=== PATIENT | female | born 1940 | race Caucasian/White ===

== ENCOUNTER 2016-06-18 07:08 | Inpatient (IN) ==
[2016-06-18] MEDS ORDERED: ZOFRAN ONE (08:08)
[2016-06-18] MEDS ORDERED: ZOFRAN IV ONE (08:17)
[2016-06-18] MEDS ORDERED: SODIUM CHLORIDE 0.9% INJ ONE ×3 (08:34→10:01)
[2016-06-18] MEDS ORDERED: PHENERGAN IV ONE ×2 (08:34→10:01)
[2016-06-18] MEDS ORDERED: NS 1,000 ML IV ONE (08:34)
[2016-06-18] MEDS ORDERED: PROTONIX IV ONE (08:35)
--- NOTE | 2016-06-18 08:52 | PROVIDER DOCUMENTATION ---
HPI-Abdominal Pain/GI Problem - General Chief Complaint: Abdominal Pain Stated Complaint: ABD PAIN,VOMITING Time Seen by Provider: 06/18/16 07:41 Allergies/Adverse Reactions: Patient Allergies Allergy/AdvReac Type Severity Reaction Status Date / Time codeine Allergy Unknown Verified 06/18/16 08:50 erythromycin base Allergy Unknown Verified 06/18/16 08:50 Home Medications: Home Medication List Medication Instructions Recorded Confirmed Last Taken Type Aripiprazole [Abilify] 10 mg PO DAILY 06/18/16 06/18/16 06/17/16 08:00 History Clonazepam [Klonopin] 2 mg PO TID PRN 06/18/16 06/18/16 Unknown History Clopidogrel Bisulfate [Plavix] 75 mg PO DAILY 06/18/16 06/18/16 06/17/16 20:00 History Hydrocodone/APAP 7.5 mg/325 mg 7.5 mg PO TID 06/18/16 06/18/16 06/17/16 21:00 History [[place]-7.5] Hydroxychloroquine [Plaquenil] 200 mg PO DAILY 06/18/16 06/18/16 06/17/16 20:00 History Metoprolol Succinate E.r. [Toprol 25 mg PO DAILY 06/18/16 06/18/16 06/17/16 08: 00 History Xl] Omeprazole [Prilosec] 20 mg PO DAILY 06/18/16 06/18/16 06/17/16 08:00 History Primidone 100 mg PO HS 06/18/16 06/18/16 06/17/16 20:00 History Quetiapine Fumarate [Seroquel] 100 mg PO HS 06/18/16 06/18/16 06/17/16 20:00 History Quinapril [Accupril] 20 mg PO DAILY 06/18/16 06/18/16 06/17/16 20:00 History Sertraline HCl [Zoloft] 100 mg PO DAILY 06/18/16 06/18/16 06/17/16 08:00 History Tapentadol HCl [Nucynta] 100 mg PO BID 06/18/16 06/18/16 06/17/16 20:00 History Tizanidine HCl [Zanaflex] 4 mg PO TID 06/18/16 06/18/16 06/17/16 20:00 History - History of Present Illness-ABD Nature of Presenting Problems: Pt with abd pain with n/v since last pm. Has been having some constipation problems but no diarrhea. No fevers. Diffuse pain only. No c/o's. Abdominal Pain Onset Location: reports: other (diffusely, started in epigastric area) Quality of Pain: reports: aching, cramping Severity in ED: reports: moderate Onset/Duration: reports: last night Timing: reports: still present Associated Symptoms: reports: constipation, nausea, vomiting. denies: chest pain, cough, diaphoresis, diarrhea, fever/chills, genitourinary problems, headaches, heartburn, swelling/mass in abdomen Last BM: this morning Dark Stools Present?: reports: none noticed Rectal Bleeding: reports: none Rectal Pain: reports: none Emesis Description: denies: red blood, coffee grounds Review of Systems - Adult - REVIEW OF SYSTEMS - ADULT Constitutional: denies: chills, fever Eyes: reports: no symptoms reported Ears, Nose, Mouth & Throat: reports: no symptoms reported Cardiovascular: denies: chest pain, palpitations Respiratory: denies: cough, shortness of breath Gastrointestinal: reports: abdominal pain, constipation, nausea, vomiting. denies: diarrhea Genitourinary: denies: dysuria, frequency, hematuria Musculoskeletal: reports: no symptoms reported Integumentary: reports: no symptoms reported Neurological: reports: no symptoms reported Psychiatric: reports: no symptoms reported Endocrine: reports: no symptoms reported Hematologic/Lymphatic: reports: no symptoms reported Allergic/Immunologic: reports: no symptoms reported All Other Systems: Reviewed and Negative Past History - Adult - PAST MEDICAL HISTORY-ADULT Review of Records: reports: Nursing Assessment Review, Medications Reviewed Cardiovascular: reports: HTN Gastrointestinal: reports: diverticulosis, GERD Musculoskeletal: reports: fibromyalgia Neurological: reports: TIA Psychiatric: reports: bipolar, depression - PRIOR SURGERIES/PROCEDURES Surgical/Procedure History: reports: appendectomy, cholecystectomy, hysterectomy , orthopedic (extremity) - SOCIAL HISTORY Smoking: non-smoker Physical Exam-General - PHYSICAL EXAM-ADULT Initial Vital Signs Reviewed: Yes - CONSTITUTIONAL General Appearance: appears well, alert, no apparent distress - EYES Eyes: PERRL/EOMI, pink conjunctivae - HEAD, EARS, NOSE, MOUTH & THROAT HENMT: normocephalic/atraumatic, moist mucous membranes - NECK Neck: non-tender, full range of motion, supple - RESPIRATORY Respiratory: chest non-tender, lungs clear, normal breath sounds - CARDIOVASCULAR Cardiovascular: normal peripheral pulses, regular rate, rhythm, no edema - GASTROINTESTINAL (ABDOMEN) Abdominal Exam: normal bowel sounds, soft, no organomegaly, no pulsatile mass, tenderness. negative: distended, guarding, rigid, rebound, mass, McBurney's point tenderness, Kee's sign - LYMPHATIC Lymphatic: no adenopathy. negative: enlargement - MUSCULOSKELETAL Back Exam: normal inspection, no CVA tenderness, no vertebral tenderness Extremity: normal range of motion, non-tender, normal inspection, no pedal edema - SKIN Integumentary: normal color, normal turgor, warm/dry - NEUROLOGIC Neurologic: grossly normal - PSYCHIATRIC Psych/Mental Status: normal mood/affect Progress - PLAN OF CARE/RESULTS Progress/Plan/Lab Results: Vital Signs - 8 hr 06/18/16 07:15 Temperature 97.6 F Pulse Rate 68 Respiratory Rate 18 Blood Pressure 170/87 O2 Sat by Pulse Oximetry 100 Orders Category Date Time Status AMYLASE [CHEM] Stat Lab 06/18/16 08:34 Uncollected CBC WITH ELECTRONIC DIFF [HEME] Stat Lab 06/18/16 08:34 Uncollected COMPREHENSIVE METABOLIC PANEL [CHEM] Stat Lab 06/18/16 08:34 Uncollected LIPASE [CHEM] Stat Lab 06/18/16 08:34 Uncollected 0.9% Sodium Chloride Inj [Ns] 1,000 ml Med 06/18/16 08:34 Active IV 999 mls/hr Ondansetron [Zofran] Med 06/18/16 08:08 Discontinued 4 mg .ROUTE .STK-MED ONE Ondansetron [Zofran] Med 06/18/16 08:17 Discontinued 4 mg IV NOW ONE Pantoprazole [Protonix] Med 06/18/16 08:35 Discontinued 40 mg IV NOW ONE Promethazine [Phenergan] Med 06/18/16 08:34 Discontinued 12.5 mg IV NOW ONE Sodium Chloride 0.9% Med 06/18/16 08:34 Discontinued 10 ml INJ NOW ONE Sodium Chloride 0.9% Med 06/18/16 08:35 Discontinued 10 ml INJ NOW ONE Result Diagrams: 06/18/16 08:03 06/18/16 08:03 - REASSESSMENT Reassessment #1 Time Reassessed: 09:50 Status: unchanged (after zofran and 12.5mg phenergan--will give additional dose phenergan) Reassessment #2 Time Reassessed: 11:15 Status: worsening Reassessment Comment: increased pain - XRAY 1 XRAY Study: Abdomen Impression: Abnormal XRAY Interpretation: gas pattern suggestive of volvulus - CT/MRI 1 CT Study: Abdomen, Pelvis Impression: Abnormal, Discussed w/Radiology CT Results: Cecal volvulus - CONSULTS/PCP/HOSPITALIST Notification #1 *Consult/PCP/Hospitalist*: Figh Time Discussed: 13:41 Consult Disposition: Will see in ED, Admit Departure - Departure Time of Disposition Decision: 13:45 DIAGNOSIS: Cecal volvulus Disposition: ADMITTED INPATIENT 09 Certified Medical Emergency: Emergent Condition: Stable Referrals and Follow-Ups: Nicolás Taylor MD [Primary Care Provider] -
[2016-06-18 09:03] LABS: MANUAL DIFF NEEDED? NO
[2016-06-18 09:06] LABS: BASO% 0.2 % (0.0-0.8); EOS# 0.05 X1000 (0.0-0.7); EOS% 0.5 % (0.0-10.0); HEMATOCRIT 36.9 % (37.0-47.0); HEMOGLOBIN 12.2 g/dL (12.0-16.0); IMM GRAN# 0.03 X1000 (0.0-0.04); IMM GRAN% 0.3 % (0.0-0.5); LYMPH# 1.36 X1000 (1.2-3.4); LYMPH% 14.2 % (20.5-51.1); MCH 30.8 PG (27-31); MCHC 33.1 g/dL (33-37); MCV 93.2 FL (81-99); MONO# 0.54 X1000 (0.11-0.59); MONO% 5.7 % (1.7-9.3); MPV 10.2 FL (7.4-10.4); NEUT% 79.1 % (42.2-75.2); PLT 195 X1000 (130-400); RBC 3.96 XMIL (4.2-5.4)
[2016-06-18 09:45] LABS: AGAP 12; ALKALINE PHOSPHATASE 80 U/L (32-104); AMYLASE 101 U/L (20-200); BUN 17 mg/dL (8-22); CALCIUM 9.4 mg/dL (8.8-10.2); CHLORIDE 99 mmol/L (98-107); COSMO 282; GOT 24 U/L (10-30); GPT 11 U/L (10-36); LIPASE 47 U/L (13-60); POTASSIUM 4.1 mmol/L (3.5-5.1); SODIUM 139 mmol/L (136-145); TCO2 28 mmol/L (25-35); TOTAL BILIRUBIN 0.21 mg/dL (0.20-1.00); TOTAL PROTEIN 6.8 g/dL (6.3-8.3)
--- NOTE | 2016-06-18 10:43 | Diag Imaging Result Document ---
PROCEDURE NAME: FLAT/UPRIGHT ABD/1 VIEW CHEST - 06/18/2016 ABDOMINAL SERIES: No comparison exam. FINDINGS: There is gaseous distention of the sigmoid colon. This is nonspecific but can be seen with sigmoid volvulus. There is a small amount of gas visible elsewhere in nondistended colon. There is no abnormal gaseous small-bowel distention identified. There is no free air identified. Upright chest shows within normal limits heart size. There is mild tortuosity of the thoracic aorta. The lungs appear clear. There is no pleural effusion or pneumothorax identified. IMPRESSION: 1. Gaseous distention of sigmoid colon. This is nonspecific but can be seen with sigmoid volvulus. Correlation with clinical evaluation is recommended. 2. No abnormal gaseous small-bowel distention. No evidence of acute cardiopulmonary disease.
[2016-06-18] MEDS ORDERED: DILAUDID IV ONE ×2 (11:30→13:45)
--- NOTE | 2016-06-18 13:57 | Diag Imaging Result Document ---
PROCEDURE NAME: CT ABD/PELVIS W/ IV CONT ONLY - 06/18/2016 CT OF THE ABDOMEN AND PELVIS WITH CONTRAST: FINDINGS: Exam performed with oral and intravenous contrast. A dose reduction protocol was use. No comparison CT scan is available. There are calcified granulomas from old granulomatous disease at the lung bases. There are no substantial abnormalities of the liver, spleen, adrenal glands, or pancreas identified. The gallbladder is surgically absent. There is a small left renal cyst. There is slight cortical thinning or scarring at the left kidney. The bilateral kidneys otherwise enhance homogeneously. There is no hydronephrosis. There are no substantially enlarged lymph nodes identified. The cecum is substantially distended and medially displaced. There is a twist in the right lower quadrant mesentery, and a beaked appearance to the distal cecum. These findings are compatible with cecal volvulus. There is no substantial bowel wall thickening identified. There is no abscess identified. There is no free air. There is no evidence of small bowel obstruction. There is mild uncomplicated colonic diverticulosis. IMPRESSION: 1. Findings which are compatible with cecal volvulus. 2. No free air. Verbal results provided to Dr. Perez at 1:39 p.m. on 06/18/2016. MTDD
[2016-06-18] MEDS ORDERED: LR 1,000 ML IV ONE (15:13)
--- NOTE | 2016-06-18 15:44 | CONSULTATION ---
DATE OF CONSULTATION: 06/18/2016 REQUESTING PHYSICIAN: Dr. Perez in emergency department. CONSULT CONCERNING: Cecal volvulus. HISTORY OF PRESENT ILLNESS: A 75-year-old female presenting with abdominal pain and nausea, vomiting starting last night. She had previous constipation issues but never had pain to this degree. Came into the emergency department, was evaluated, found to have a cecal volvulus. I was asked to evaluate the patient. She does report abdominal pain and fullness and bloating and some nausea again. Most of the tenderness in the right lower quadrant but she does have some diffuse tenderness that is described as moderate, cramping and aching in intensity and has never been to this degree before. PAST MEDICAL HISTORY: Includes history of hypertension, gastroesophageal reflux disease, diverticulosis, fibromyalgia, TIA, bipolar disease and depression. PAST SURGICAL HISTORY: Includes appendectomy, cholecystectomy, hysterectomy, unspecified orthopedic extremity surgery. HOME MEDICATIONS: Include Abilify, Klonopin, Plavix, [place], Plaquenil, metoprolol, Prilosec, Primidone, Seroquel, Accupril, Zoloft and Zanaflex. ALLERGIES: Include codeine and erythromycin. SOCIAL HISTORY: Denies alcohol, tobacco or illicit drugs. FAMILY HISTORY: Reviewed with patient but noncontributory. REVIEW OF SYSTEMS: A full 10 point review of systems obtained, negative as specified in HPI. PHYSICAL EXAMINATION: Vital Signs: Patient is currently afebrile. Her vital signs have been stable. General: No acute distress but appears uncomfortable. female, looks stated age. HEENT: Normocephalic, atraumatic. Pupils equal, round, reactive to light. Mucous membranes moist. Oropharynx benign. Neck: Supple. Trachea midline. Cardiovascular: Regular rate and rhythm. Lungs: Grossly clear. Abdomen: Distended but soft. Tympanic to percussion. Multiple previous surgical scars noted. She is tender to palpation diffusely. Some mild peritoneal signs. No gross peritonitis. Extremities: Moves all extremities. Neurologic: Grossly intact. Skin: No signs of jaundice. Vascular: All extremities perfused. LABORATORY: White blood cell count is 9, hematocrit 36, platelet count 195,000. Remainder of labs reviewed and grossly within normal limits. CT scan independently reviewed and radiology report reviewed. CT scan does show a cecal volvulus. ASSESSMENT AND PLAN: A 75-year-old female with multiple medical comorbidities and a cecal volvulus. 1. Multiple medical comorbidities. At this time she is being admitted by the hospitalist for management of her multiple medical comorbidities. This does increase her risk of perioperative mortality. Discussed that with the patient. Discussed her potential for prolonged intubation after the surgery. All questions were answered. 2. Cecal volvulus. At this time, the patient does need surgical intervention. The best intervention would be a right hemicolectomy. Discussed in detail this procedure with the patient. Discussed risks, benefits, alternatives. Discussed with patient that her risk of bleeding is elevated given her fact she is on Plavix. She voices understanding and wants to proceed with the procedure. The family was in the room and also agreed. Discussed with patient about potentially being in the ICU afterwards. All questions were answered. We will schedule and type and cross the patient. cc: Kemal Barajas MD
[2016-06-18] MEDS ORDERED: MEFOXIN 2 GM/NS 2 GM/50 ML IVPB IV ONE (16:00)
[2016-06-18] MEDS ORDERED: ALBUMIN 25% ONE (16:08)
[2016-06-18] MEDS ORDERED: MEFOXIN 2 GM/NS 2 GM/50 ML IVPB ONE (16:13)
[2016-06-18 17:11] LABS: URINE MICRO REVIEW NEEDED? NO; URINE SOURCE CATH
[2016-06-18 17:17] LABS: BILIRUBIN URINE NEGATIVE (NEGATIVE); BLOOD URINE NEGATIVE (NEGATIVE); COLOR YELLOW; GLUCOSE URINE NEGATIVE (NEGATIVE); LEUKOCYTES URINE NEGATIVE (NEGATIVE); NITRITE URINE NEGATIVE (NEGATIVE); PH URINE 7.5; PROTEIN URINE NEGATIVE (NEGATIVE); SP GRAVITY URINE 1.021; TURBIDITY URINE CLEAR (CLEAR); UROBILINOGEN URINE NORMAL (NORMAL)
[2016-06-18 17:18] LABS: UR EPITHELIAL CELLS <10 /HPF (<10); URINE BACTERIA NEGATIVE /HPF; URINE RBC <10 /HPF (<10); URINE WBC <10 /HPF (<10)
--- NOTE | 2016-06-18 18:07 | HISTORY AND PHYSICAL ---
PRIMARY CARE PROVIDER: Dr. Taylor. CHIEF COMPLAINT: Abdominal pain with vomiting. HISTORY OF PRESENT ILLNESS: Ms. Shirley Lemus is a 75-year-old female with a history of lupus for 20 years, TIA, fibromyalgia, bipolar, and hypertension who apparently started having some abdominal pain last night and some mixed constipation and diarrhea spells. She vomited about 10 times prior to admission and had some associated chills but no other symptoms. She states she did try to take Pepto-Bismol, but she threw it right back up. Our workup revealed that she had an abdominal CT that showed a cecal volvulus. Dr. Fermin has been consulted, and she has gone for emergency surgery at this time. PAST MEDICAL HISTORY: Hypertension, bipolar, depression, diverticulosis, GERD, fibromyalgia, TIA since 20 years ago. PAST SURGICAL HISTORY: Appendectomy, cholecystectomy, hysterectomy. She has had right shoulder surgery, left knee scope with repair, bunionectomy on the left, bladder tack x2. 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 Right carpal tunnel surgery. SOCIAL HISTORY: Denies tobacco, alcohol or illicit drug use. FAMILY HISTORY: Brother had kidney and lung cancer. REVIEW OF SYSTEMS: Fourteen-point review of systems were complete and all were negative except for those mentioned above in HPI. ALLERGIES: Codeine, erythromycin. HOME MEDICATIONS: Abilify 10 mg p.o. daily. Klonopin 2 mg p.o. 3 times a day as needed. Plavix 75 mg p.o. daily. [place] 7.5 p.o. t.i.d. Plaquenil 200 mg p.o. daily. Metoprolol extended release 25 mg p.o. daily. Omeprazole 20 mg p.o. daily. Primidone 100 mg p.o. nightly. Seroquel 100 mg p.o. nightly. Quinapril 20 mg p.o. daily. Sertraline HCL 100 mg p.o. daily. Tapentadol HCl 100 mg p.o. twice daily. Zanaflex 4 mg p.o. 3 times a day. LABORATORY DATA: White blood cells 9000, hemoglobin 12, hematocrit 36, platelet count 195,000. Sodium 139, potassium 4.1, BUN 17, creatinine 0.8, glucose 151, calcium 9.9, total bilirubin 0.21. AST 24, ALT of 11, amylase 101, lipase 47. Urinalysis negative. IMAGING: Abdominal pelvic CT showed cecal volvulus but no free air. Abdominal x-ray showed gaseous distention of the sigmoid colon which tends to be seen with a sigmoid volvulus. PHYSICAL EXAMINATION: VITAL SIGNS: Temperature 98.3 degrees, heart rate 85, respiratory rate 15, blood pressure 152/57, O2 saturation 74% on room air. Height 5 feet 1 inch tall, 186 pounds, BMI 35.1. GENERAL: Ms. Shirley Lemus is a 75-year-old female. She is in no acute distress. Able to answer all questions appropriately. She actually states that her pain is in her left lower quadrant, although where he is going to do surgery will be right lower quadrant. HEENT: Atraumatic, normocephalic. Pupils equal, round, reactive to light. Extraocular movements are intact. NECK: No JVD or carotid bruits noted. CARDIOVASCULAR: S1, S2. Regular rate and rhythm. No rubs, gallops, murmurs. PULMONARY: Clear to auscultation. Bilateral breath sounds. No excessive muscle use of work of breathing noted. GI: Tender in left lower quadrant. Positive hypoactive bowel sounds x4. EXTREMITIES: No edema noted with +2 dorsalis and radial pulses. NEUROLOGIC: Alert and oriented x4. Moves all extremities. ASSESSMENT AND PLAN: 1. Intractable nausea, vomiting, abdominal pain now with cecal volvulus and has gone for emergency surgery with Dr. Kemal Barajas. Will likely receive IV fluid hydration and has been started on IV antibiotics. 2. Hypertension. We will re-evaluate the need for medications post surgery. 3. Bipolar. Again depending on how the surgery goes will re-evaluate medications. 4. Fibromyalgia. Pain medication will likely have to be via IV. 5. Lupus, currently stable. 6. Deep venous thrombosis prophylaxis. SCDs. 7. Gastrointestinal prophylaxis. Will likely start on a proton pump inhibitor. Dictated by AISHWARYA Teresa for Renard Huffman MD cc: AISHWARYA Teresa MD Matthew L. Figh, MD Gregory S. Cheatham, MD
[2016-06-18] MEDS ORDERED: DILAUDID ONE (18:33)
[2016-06-18] MEDS ORDERED: KETAMINE (DOSE) ONE (18:34)
[2016-06-18] MEDS ORDERED: MORPHINE PCA ONE (18:43)
[2016-06-18] MEDS ORDERED: LR 1,000 ML ONE (18:44)
[2016-06-18] MEDS ORDERED: MORPHINE PCA IV PRN (18:55)
[2016-06-18] MEDS ORDERED: MORPHINE IV PRN (18:58)
[2016-06-18] MEDS ORDERED: ZOFRAN IV PRN (18:58)
[2016-06-18] MEDS ORDERED: LR 1,000 ML IV SCH (19:00)
--- NOTE | 2016-06-18 19:59 | OPERATIVE NOTE ---
PROCEDURE DATE: 06/18/2016 PREOPERATIVE DIAGNOSIS: Cecal volvulus. POSTOPERATIVE DIAGNOSIS: Cecal volvulus, likely secondary to adhesions. PROCEDURE: 1. Exploratory laparotomy. 2. Right hemicolectomy with hand-sewn 2-layer ileocolonic anastomosis. SURGEON: Kemal Barajas MD. VISITOR SERVICES ASSOCIATE: None. ANESTHESIA: General tracheal. INTRAOPERATIVE FINDINGS: As above. ESTIMATED BLOOD LOSS: 200 mL. SPECIMENS REMOVED: Right colon. BRIEF HISTORY: The patient is a 75-year-old female presenting with a 12-hour history of abdominal pain. She was found in the ER to have a cecal volvulus. Given this, we elected to take the patient to the operative theatre. We discussed with the patient the risks, benefits, alternatives. All questions were answered. DETAILS OF OPERATION: After informed consent was obtained, patient brought to the operative theatre, transferred to the operating table and placed supine position. General endotracheal anesthesia was then performed without complication. A formal time-out was then performed, confirming patient, date, procedure. All were in agreement. At that time, attention was given to the abdomen. After the abdomen was prepped and draped after a standard time-out, we made a standard midline incision. Upon entry of that, we saw a large cecal volvulus. It appeared to be viable, but significantly torsed. We elected to do a right hemicolectomy. She did have adhesions from previous surgeries which we took down sharply without any issue. We made a small window in the terminal ileum about 5 cm in vivo from the ileocecal valve, transected the bowel there. Also made a window in the transverse colon lateral to the middle colic. Made a window there. Transected the colon. At that point, we then used the LigaSure and electrocautery to take down the white line of [place] and to mobilize the mesentery of the cecum and ascending colon around to the hepatic flexure, removed the colon in its entirety, maintaining hemostasis with electrocautery and LigaSure. The patient was on Plavix and did have some oozing. There were a couple of areas that we had to suture ligate in addition. Once we were able to do this, we fashioned a hand-sewn 2-layer [id number] functional end-to-end anastomosis. We elected to do this given the change in discrepancy and caliber between the 2 lumens. We did this with 3-0 silk and 3-0 Vicryl with good results. The lumen appeared patent. We closed the mesenteric defect. We irrigated out the abdomen copiously. Lay the anastomosis gently into the abdomen and covered with omentum. Closed the abdomen in layers using 0 chromic for the peritoneum and running looped PDS from either side for the fascia. We placed jack through the skin. The patient tolerated procedure well and had a sterile dressing applied. Postoperatively, we will monitor the patient closely and await return of bowel function. cc: MD Renard Byrd MD
[2016-06-18] MEDS: PERIDEX MT SCH (20:53)
[2016-06-18] MEDS: PROTONIX IV SCH (20:53)
[2016-06-18] MEDS: ZOFRAN IV PRN (20:53)
[2016-06-18] MEDS: ZOSYN 3.375 GM/NS 3.375 GM/50 ML IVPB IV SCH (21:01)
[2016-06-18] MEDS: NS 1,000 ML IV SCH (21:02)
[2016-06-18] MEDS ORDERED: NS 500 ML IV ONE (21:27)
[2016-06-18] MEDS ORDERED: MEFOXIN 2 GM/NS 2 GM/50 ML IVPB IV SCH (22:00)
[2016-06-18 22:16] LABS: MANUAL DIFF NEEDED? NO
[2016-06-18 22:46] LABS: BASO% 0.2 % (0.0-0.8); EOS# 0.05 X1000 (0.0-0.7); EOS% 0.5 % (0.0-10.0); HEMOGLOBIN 9.2 g/dL (12.0-16.0); IMM GRAN# 0.02 X1000 (0.0-0.04); IMM GRAN% 0.2 % (0.0-0.5); LYMPH% 24.2 % (20.5-51.1); MCHC 32.9 g/dL (33-37); MCV 94.3 FL (81-99); MONO# 0.66 X1000 (0.11-0.59); MONO% 6.4 % (1.7-9.3); MPV 9.6 FL (7.4-10.4); NEUT% 68.5 % (42.2-75.2); PLT 207 X1000 (130-400); RBC 2.97 XMIL (4.2-5.4)
[2016-06-19] MEDS: ZOSYN 3.375 GM/NS 3.375 GM/50 ML IVPB IV SCH ×4 (04:51→22:43)
[2016-06-19] MEDS: NS 1,000 ML IV SCH ×5 (04:54→21:32)
[2016-06-19 05:44] LABS: MANUAL DIFF NEEDED? NO
--- NOTE | 2016-06-19 05:51 | PROGRESS NOTE ---
DATE: 06/19/2016 SUBJECTIVE: The patient is doing well. Some appropriate pain; otherwise, she is doing okay. She had some episodes of hypotension, but responded to fluid resuscitation. OBJECTIVE: Vital Signs: Patient is currently afebrile. Temperature 97.2 degrees, pulse is regular at 97, blood pressure 109/49. O2 saturation 99% on 3 L nasal cannula. General Examination: No acute distress. Resting comfortably in bed. Cardiovascular: Regular rate and rhythm. Lungs: Grossly clear. Abdomen: Soft, appropriately tender and nondistended. Incision with dressing in place. LABORATORY: Hematocrit from last night 28. Current labs pending. ASSESSMENT AND PLAN: A 75-year-old female, status post right hemicolectomy for cecal volvulus. 1. Multiple medical comorbidities, at this time being managed by the hospitalist service. We will defer those issues to the hospitalist service. 2. Postoperative state. At this time will keep her on her current diet. We will wait return of bowel function. We will also keep her Black catheter in place to monitor her urine output and overall assess the patient's status. Will keep her on antibiotics for total 24 hours after the operation. cc: MD Renard Byrd MD
[2016-06-19 05:58] LABS: BASO% 0.4 % (0.0-0.8); EOS# 0.17 X1000 (0.0-0.7); EOS% 2.1 % (0.0-10.0); HEMATOCRIT 27.2 % (37.0-47.0); HEMOGLOBIN 8.6 g/dL (12.0-16.0); IMM GRAN# 0.02 X1000 (0.0-0.04); IMM GRAN% 0.2 % (0.0-0.5); LYMPH# 1.78 X1000 (1.2-3.4); LYMPH% 22.1 % (20.5-51.1); MCH 30.4 PG (27-31); MCHC 31.6 g/dL (33-37); MCV 96.1 FL (81-99); MONO# 0.61 X1000 (0.11-0.59); MONO% 7.6 % (1.7-9.3); MPV 9.7 FL (7.4-10.4); NEUT% 67.6 % (42.2-75.2); PLT 200 X1000 (130-400); RBC 2.83 XMIL (4.2-5.4)
[2016-06-19 06:18] LABS: AGAP 9; BUN 13 mg/dL (8-22); CALCIUM 7.6 mg/dL (8.8-10.2); CHLORIDE 104 mmol/L (98-107); COSMO 277; POTASSIUM 3.8 mmol/L (3.5-5.1); SODIUM 138 mmol/L (136-145); TCO2 25 mmol/L (25-35)
[2016-06-19] MEDS ORDERED: OFIRMEV 1000 MG/ISOTONIC SOLN 1,000 MG/100 ML BOTTLE ONE (08:54)
[2016-06-19] MEDS ORDERED: XYLOCAINE-MPF 2% ONE (08:54)
[2016-06-19] MEDS ORDERED: TORADOL ONE (08:54)
[2016-06-19] MEDS ORDERED: QUELICIN (DOSE) ONE (08:54)
[2016-06-19] MEDS ORDERED: ROBINUL ONE (08:54)
[2016-06-19] MEDS ORDERED: APRESOLINE ONE (08:54)
[2016-06-19] MEDS ORDERED: ZOFRAN ONE (08:54)
[2016-06-19] MEDS ORDERED: NEOSTIGMINE ONE (08:54)
[2016-06-19] MEDS ORDERED: LR 1,000 ML ONE (08:55)
[2016-06-19] MEDS ORDERED: ZEMURON ONE (08:55)
[2016-06-19] MEDS ORDERED: DECADRON ONE (08:55)
[2016-06-19] MEDS: PERIDEX MT SCH ×2 (09:41→21:32)
[2016-06-19] MEDS: HEPARIN SUBQ SCH ×2 (09:41→16:57)
--- NOTE | 2016-06-19 15:42 | PROGRESS NOTE ---
DATE: 06/19/2016 SUBJECTIVE: The patient reports mild pain around the surgical area. She denies any nausea or vomiting. OBJECTIVE: Vital Signs: Temperature 97.9 degrees, heart rate 98, respiratory rate 20, blood pressure 104/79. O2 saturation 99% on 2 L nasal cannula. General Examination: This is a 75-year- old female lying in bed, in no acute distress. HEENT: Head is normocephalic, atraumatic. Anicteric sclerae and pale conjunctivae. Mucous membranes moist. Neck: Supple. No jugular venous distention noted. No carotid bruits. No carotid bruits. No lymphadenopathy. No thyromegaly. Cardiovascular Examination: S1, S2 heard. No murmurs, gallops, or rubs. Regular rate and rhythm. Respiratory: Clear bilaterally to auscultation. No work of breathing or using accessory muscles. Abdomen: Soft, mildly tender to palpation around the surgical area that is covered by dressing. No signs of peritoneal irritation. Bowel sounds present. No organomegaly. Extremities: No clubbing, cyanosis, or edema. Peripheral pulses present in both legs. Neurological: Patient is alert and oriented x3. Moves 4 extremities. LABORATORY DATA: White cell count 8.04, hemoglobin 8.6, hematocrit 27.2, platelets 200,000. B- type natriuretic peptide unremarkable. ASSESSMENT AND PLAN: 1. Cecal volvulus. 2. Status post right hemicolectomy. 3. Hypertension. 4. Bipolar disorder. 5. Fibromyalgia. PLAN: 1. The patient was admitted to the hospital for intractable nausea, vomiting, and CT of the abdomen and pelvis shows cecal volvulus. Dr. Barajas, from General Surgery, was consulted and he took this patient to operating room where he perform a right hemicolectomy. At this time, this patient is stable. She has been seen by her surgeon in the morning and she is doing fine. At this point, we are going to continue following the lead from general surgery. 2. Hypertension. Blood pressure is under control. We have held all blood pressure medications. 3. Bipolar disorder. Patient is on home medications. 4. Fibromyalgia. Aware. 5. Six systemic lupus erythematosus. Aware. Overall this patient is doing good. We are going to discharge this patient when okay with surgery. cc: Renard Huffman MD
[2016-06-19] MEDS: SODIUM CHLORIDE 0.9% INJ SCH (21:32)
[2016-06-19] MEDS: PROTONIX IV SCH (21:32)
[2016-06-20] MEDS: HEPARIN SUBQ SCH (00:35)
[2016-06-20] MEDS ORDERED: TYLENOL PO ONE (02:07)
[2016-06-20] MEDS: NS 1,000 ML IV SCH ×4 (02:19→21:21)
[2016-06-20 03:31] LABS: BASO% 0.2 % (0.0-0.8); EOS# 0.17 X1000 (0.0-0.7); HEMATOCRIT 22.2 % (37.0-47.0); HEMOGLOBIN 6.9 g/dL (12.0-16.0); IMM GRAN# 0.03 X1000 (0.0-0.04); IMM GRAN% 0.4 % (0.0-0.5); LYMPH% 15.2 % (20.5-51.1); MANUAL DIFF NEEDED? NO; MCH 30.7 PG (27-31); MCHC 31.1 g/dL (33-37); MCV 98.7 FL (81-99); MONO# 0.76 X1000 (0.11-0.59); MONO% 8.9 % (1.7-9.3); MPV 9.2 FL (7.4-10.4); NEUT% 73.3 % (42.2-75.2); PLT 172 X1000 (130-400); RBC 2.25 XMIL (4.2-5.4)
[2016-06-20] MEDS ORDERED: LOPRESSOR IV ONE (03:31)
[2016-06-20] MEDS ORDERED: NS 500 ML IV ONE (03:32)
[2016-06-20] MEDS: ZOSYN 3.375 GM/NS 3.375 GM/50 ML IVPB IV SCH ×5 (03:41→22:06)
[2016-06-20 03:44] LABS: AGAP 9; BUN 9 mg/dL (8-22); CALCIUM 7.4 mg/dL (8.8-10.2); CHLORIDE 104 mmol/L (98-107); COSMO 275; POTASSIUM 3.9 mmol/L (3.5-5.1); SODIUM 138 mmol/L (136-145); TCO2 25 mmol/L (25-35)
[2016-06-20] MEDS: ZOFRAN IV PRN (05:50)
--- NOTE | 2016-06-20 07:42 | PROGRESS NOTE ---
DATE: 06/20/2016 SUBJECTIVE: Patient doing well. She did look pale and had a hematocrit checked early this morning which was at 22, and she has been started on blood. OBJECTIVE: Vital Signs: Patient is currently afebrile. Her vital signs have been stable. Her most recent temperature 99.4, most recent heart rate 98, most recent blood pressure 132/53, most recent O2 saturation 100% on 2 L nasal cannula. General: No acute distress. Resting comfortably. Currently receiving blood. Cardiovascular: Regular rate and rhythm. Lungs: Grossly clear. Abdomen: Soft, nondistended. Incision with dressing in place. Hypoactive bowel sounds. LABORATORY: As stated previously, hematocrit 22, platelet count 172,000. ASSESSMENT AND PLAN: A 75-year-old, female, postoperative day #2 from a right hemicolectomy for a cecal volvulus. 1. Anemia. Patient was on Plavix. She is currently receiving a transfusion. She had no active sources of bleeding intraoperatively. I suspect that her abdomen has raw surfaces that are bleeding slowly secondary to the Plavix. We will transfuse blood and hold heparin for at least the next 48 hours and monitor closely. She has been hemodynamically stable. 2. Postoperative state. At this time, patient does have some mild nausea. We will keep her on her current diet and wait return of bowel function. cc: Kemal Barajas MD
[2016-06-20] MEDS: TOPROL XL PO SCH (09:11)
[2016-06-20] MEDS: PERIDEX MT SCH ×2 (09:12→21:20)
[2016-06-20 09:55] LABS: HEMOGLOBIN 7.8 g/dL (12.0-16.0)
[2016-06-20] MEDS: PHENERGAN IV PRN ×2 (13:11→19:33)
[2016-06-20] MEDS: SODIUM CHLORIDE 0.9% INJ PRN ×2 (13:12→19:34)
--- NOTE | 2016-06-20 17:06 | PROGRESS NOTE ---
DATE: 06/20/2016 SUBJECTIVE: This patient is still complaining of mild nausea and she has been vomiting x2. As per the patient, she started passing gas. I think it is just 1 occasion and she had a small bowel movement recently. Family members at the bedside. OBJECTIVE: Vital Signs: Temperature 99.1, pulse 115, respiratory rate 18, blood pressure 139/61, oxygen saturation 99 on 2 L of nasal cannula. HEENT: Head normocephalic. No trauma. PERRLA. Neck: Supple. No JVD. No masses. Central trachea. Chest: Clear to auscultation. No wheezing. No rales. Cardiovascular: RRR. No murmurs. Abdomen: Soft. Mildly distended. Mild tenderness to palpation at the level of the right abdominal area. Extremities: No edema. No clubbing. No cyanosis. Neurological: The patient is alert and oriented x3. No focal neurological deficits. LABORATORY: WBC 8.5, hemoglobin 6.9, hematocrit 22. Platelets 172, sodium 138, potassium 3.9, chloride 104, bicarbonate 25, BUN 9, creatinine 0.7, glucose 114, calcium 7.4. ASSESSMENT AND PLAN: 1. Cecal volvulus, status post right hemicolectomy. This patient is complaining of nausea and vomiting x2. Apparently, she started passing some gas and she had a small bowel movement, but the bowel sounds are decreased, we will continue following the recommendations of surgery department. 2. Hypertension. The blood pressure is stable. Continue with the same management. 3. Bipolar disorder. Aware. 4. Anemia, this patient has been transfused in the morning and the hemoglobin improved from 6.9 to 7.8. I will monitor the hemoglobin again in the morning to see if she needs more PRBCs. 5. Fibromyalgia, aware. 6. Questionable systemic lupus erythematosus. Aware. cc: Heriberto Quinteros MD
[2016-06-20] MEDS: TYLENOL PO PRN (19:02)
[2016-06-20] MEDS: SODIUM CHLORIDE 0.9% INJ SCH (21:20)
[2016-06-20] MEDS: PROTONIX IV SCH (21:20)
[2016-06-20] MEDS ORDERED: COMPAZINE IV ONE (21:48)
[2016-06-20 22:27] LABS: HEMATOCRIT 25.7 % (37.0-47.0); HEMOGLOBIN 8.1 g/dL (12.0-16.0)
[2016-06-20] MEDS ORDERED: NARCAN ONE ×2 (23:57)
[2016-06-21] MEDS ORDERED: NARCAN IV PRN (00:12)
[2016-06-21] MEDS ORDERED: NARCAN IV ONE ×2 (00:13→00:30)
[2016-06-21] MEDS: TYLENOL PO PRN (01:44)
--- NOTE | 2016-06-21 05:18 | EKG Report ---
Test Performed on : 06/20/2016 11:55:04 PM Test Reason : LOC change Blood Pressure : / mmHG Vent. Rate : 095 BPM Atrial Rate : 095 BPM P-R Int : 146 ms QRS Dur : 080 ms QT Int : 354 ms P-R-T Axes : 038 014 -34 degrees QTc Int : 444 ms Normal sinus rhythm. Nonspecific ST and T wave abnormality Abnormal ECG No previous ECGs available Confirmed by Booker CARY, Dony Kent ([id number]) on 06/21/2016 5:52:23 PM
[2016-06-21] MEDS: NS 1,000 ML IV SCH ×4 (05:40→20:30)
[2016-06-21] MEDS: ZOSYN 3.375 GM/NS 3.375 GM/50 ML IVPB IV SCH ×4 (05:40→21:51)
[2016-06-21 06:08] LABS: MANUAL DIFF NEEDED? NO
--- NOTE | 2016-06-21 06:32 | PROGRESS NOTE ---
DATE: 06/21/2016 SUBJECTIVE: The patient did have a CAT call last night. There was some concern about oversedation. She was given Narcan. She improved. This apparently happened after she got Compazine. Otherwise, she is doing better now. She does report some persistent nausea. She is passing gas and has had multiple bowel movements but again does report nausea. OBJECTIVE: Vital Signs: Patient is currently afebrile. Heart rate is in the low 100s. Blood pressure is fine. General Examination: Alert and interactive. Cardiovascular: Regular rate and rhythm. Lungs: Grossly clear. Abdomen: Soft, nondistended. Incision is healing well. Bowel sounds auscultated. Laboratory: Hematocrit 25. ASSESSMENT/PLAN: A 75-year-old, female, postoperative day #3 from a right hemicolectomy for cecal volvulus. 1. Anemia. Patient is on Plavix. We are still holding her heparin. She did receive transfusions. Her hematocrit has stabilized at 25. If her blood pressure and heart rate continue to be an issue, would recommend to continue transfusion but otherwise we will monitor for right now. 2. Postoperative state. At this time, the patient does have some return of bowel function, although she has persistent nausea. I would like to keep her on her current diet until her nausea seems to improve. Otherwise, we will continue to follow with you. cc: Kemal Barajas MD
[2016-06-21 07:00] LABS: BASO% 0.1 % (0.0-0.8); EOS# 0.12 X1000 (0.0-0.7); EOS% 1.5 % (0.0-10.0); HEMATOCRIT 23.9 % (37.0-47.0); HEMOGLOBIN 7.4 g/dL (12.0-16.0); LYMPH# 0.85 X1000 (1.2-3.4); MCH 29.4 PG (27-31); MCV 94.8 FL (81-99); MONO# 0.44 X1000 (0.11-0.59); MONO% 5.7 % (1.7-9.3); MPV 9.5 FL (7.4-10.4); NEUT% 81.7 % (42.2-75.2); PLT 170 X1000 (130-400); RBC 2.52 XMIL (4.2-5.4)
[2016-06-21 07:06] LABS: AGAP 9; BUN 7 mg/dL (8-22); CALCIUM 7.7 mg/dL (8.8-10.2); CHLORIDE 107 mmol/L (98-107); COSMO 276; POTASSIUM 3.5 mmol/L (3.5-5.1); SODIUM 140 mmol/L (136-145); TCO2 24 mmol/L (25-35)
[2016-06-21] MEDS: PERIDEX MT SCH ×2 (09:14→20:33)
[2016-06-21] MEDS: TOPROL XL PO SCH (09:14)
[2016-06-21] MEDS ORDERED: PLAQUENIL PO SCH (09:58)
[2016-06-21] MEDS: ABILIFY PO SCH (10:59)
[2016-06-21] MEDS: KLONOPIN PO PRN ×2 (11:00→20:31)
[2016-06-21] MEDS: ZOLOFT PO SCH (11:02)
--- NOTE | 2016-06-21 16:55 | PROGRESS NOTE ---
DATE: 06/21/2016 SUBJECTIVE: This patient is still complaining of mild nausea today, and as per the patient she is passing gas and she had a big bowel movement yesterday night. Family members at the bedside. OBJECTIVE: Vital Signs: Temperature 98.4 degrees, pulse 93, respiratory rate 16, blood pressure 149/59, O2 saturation 100% on room air. HEENT: Head normocephalic. No trauma. PERRLA. Neck: Supple. No JVD. No masses. Central trachea. Chest: Clear to auscultation. No wheezing. No rales. Cardiovascular: RRR. No murmurs. Abdomen: Soft. Mild distended. Mild tenderness to palpation at the level of the right abdominal area. Extremities: No edema. No clubbing. No cyanosis. Neurological: The patient is alert and oriented x3. No focal neurological deficits. LABORATORY: WBC 7.7, hemoglobin 7.4 hematocrit 23.9, platelet 170,000. Sodium 140, potassium 3.5, chloride 107, bicarbonate 24, BUN 7, creatinine 0.5, glucose 82, calcium 7.7. ASSESSMENT AND PLAN: 1. Cecal volvulus status post right hemicolectomy. This patient is complaining still of nausea, no vomiting. Apparently she has been passing gas and she had a large bowel movement yesterday night. We will continue following the recommendations of Surgery Department. 2. Hypertension. The blood pressure is around 140s. I will decrease the IV fluids from 150 to 100 because this patient is tolerating fluids p.o. 3. Bipolar disorder. Aware. I will restart some of her medications. 4. Anemia. The hemoglobin today is 7.4 and this patient is a little bit tachycardic. She will receive 1 unit of PRBC. 5. Fibromyalgia. Aware. 6. Anxiety. I will restart this patient on clonidine. 7. SLE. I will restart this patient on her home medication. cc: Heriberto Quinteros MD
[2016-06-21] MEDS: NORCO-10 PO PRN ×2 (17:46→21:42)
[2016-06-21] MEDS: PROTONIX IV SCH (20:31)
[2016-06-21] MEDS: SODIUM CHLORIDE 0.9% INJ SCH (20:31)
[2016-06-21] MEDS: ACCUPRIL PO SCH (20:31)
[2016-06-21] MEDS: PLAQUENIL PO SCH (20:31)
[2016-06-22] MEDS: ZOSYN 3.375 GM/NS 3.375 GM/50 ML IVPB IV SCH ×6 (02:57→23:58)
[2016-06-22] MEDS: NS 1,000 ML IV SCH (03:35)
[2016-06-22] MEDS: NORCO-10 PO PRN ×5 (03:37→21:49)
[2016-06-22 06:02] LABS: MANUAL DIFF NEEDED? NO
--- NOTE | 2016-06-22 06:09 | PROGRESS NOTE ---
DATE: 06/22/2016 SUBJECTIVE: The patient's nausea improved. She tolerated a full liquid diet. Otherwise doing well. She has had a bowel movement. OBJECTIVE: Vital Signs: Patient is currently afebrile. Her vital signs have been stable. General: No acute distress. Cardiovascular: Regular rate and rhythm. Lungs: Grossly clear. Abdomen: Soft, nondistended, appropriately tender to palpation. Incision is clean, dry, and intact. Extremities: Some swelling noted. LABORATORY: None as of yet. ASSESSMENT AND PLAN: A 75-year-old female, currently postoperative day #4 from a right hemicolectomy for cecal volvulus. 1. Anemia: At this time, the patient has been on Plavix review. We have been monitoring her hematocrit. She has required some transfusions. Given her requirement of transfusions, we have kept her heparin on hold. We will need to see her hematocrit stabilize before restarting. She does have sequential compression devices on. 2. Postoperative state: At this time, patient is doing well. Given her return of bowel function, we will stop her IV fluids, especially given the setting of edema. We will mobilize the patient and remove her Black catheter. She has been transitioned over to p.o. pain medicine. cc: Kemal Barajas MD
[2016-06-22 06:10] LABS: BASO% 0.2 % (0.0-0.8); EOS# 0.23 X1000 (0.0-0.7); EOS% 2.9 % (0.0-10.0); HEMATOCRIT 28.8 % (37.0-47.0); HEMOGLOBIN 9.2 g/dL (12.0-16.0); IMM GRAN# 0.03 X1000 (0.0-0.04); IMM GRAN% 0.4 % (0.0-0.5); LYMPH# 0.85 X1000 (1.2-3.4); LYMPH% 10.6 % (20.5-51.1); MCH 29.5 PG (27-31); MCHC 31.9 g/dL (33-37); MCV 92.3 FL (81-99); MONO# 0.63 X1000 (0.11-0.59); MONO% 7.8 % (1.7-9.3); NEUT% 78.1 % (42.2-75.2); PLT 198 X1000 (130-400); RBC 3.12 XMIL (4.2-5.4)
[2016-06-22 06:23] LABS: AGAP 9; BUN 5 mg/dL (8-22); CALCIUM 7.7 mg/dL (8.8-10.2); CHLORIDE 108 mmol/L (98-107); COSMO 281; POTASSIUM 3.2 mmol/L (3.5-5.1); SODIUM 142 mmol/L (136-145); TCO2 25 mmol/L (25-35)
[2016-06-22] MEDS: KLONOPIN PO PRN ×3 (06:59→21:05)
[2016-06-22] MEDS ORDERED: KLOR-CON PO ONE (07:55)
[2016-06-22] MEDS ORDERED: PLAQUENIL PO SCH (09:00)
[2016-06-22] MEDS ORDERED: NON-FORMULARY MED (Sertraline Hcl [Zoloft] 100 MG) PO SCH (09:00)
[2016-06-22] MEDS ORDERED: ACCUPRIL PO SCH (09:00)
[2016-06-22] MEDS ORDERED: ARIPIPRAZOLE 10 MG PO SCH (09:00)
[2016-06-22] MEDS: TOPROL XL PO SCH (09:20)
[2016-06-22] MEDS: ABILIFY PO SCH (09:20)
[2016-06-22] MEDS: ZOLOFT PO SCH (09:20)
[2016-06-22] MEDS: PERIDEX MT SCH ×2 (09:20→21:06)
[2016-06-22] MEDS: HEPARIN SUBQ SCH ×2 (09:21→17:03)
--- NOTE | 2016-06-22 14:01 | PROGRESS NOTE ---
DATE: 06/22/2016 SUBJECTIVE: This patient is not complaining of nausea or vomiting today. This patient is tolerating p.o. She has been passing gas and having bowel movement. Family members are at the bedside. OBJECTIVE: Vital Signs: Temperature 97.8 degrees, pulse 80, respiratory rate 15, blood pressure 152/70, oxygen saturation 93 on 2L of nasal cannula. HEENT: Head normocephalic. No trauma. PERRLA. Neck: Supple. No JVD. No masses. Central trachea. Chest: Clear to auscultation. No wheezing. No rales. Cardiovascular: RRR. No murmurs. Abdomen: Soft, mildly distended. Mild tenderness to palpation at the level of the right abdominal area. Wound looks clean. Extremities: No edema. No clubbing. No cyanosis. Neurological: The patient is alert and oriented x3. No focal neurological deficits. LABORATORY: WBC 8.0, hemoglobin 9.2, hematocrit 28.8, platelets 198,000. Sodium 142, potassium 3.2, chloride 108, bicarbonate 25, BUN 5, creatinine 0.5, glucose 107, calcium 7.7. ASSESSMENT AND PLAN: 1. Cecal volvulus status post right hemicolectomy. This patient is getting better. She is tolerating p.o. She has been passing gases and having bowel movement. She is not complaining of any pain at this moment. 2. Hypokalemia. I will replace the potassium today. 3. Hypertension. The blood pressure is a little bit elevated, but I will continue with the same management for now. 4. Bipolar disorder. Aware. I will continue with the same management. 5. Anemia. She received 1 unit of PRBC yesterday. The hemoglobin improved from 7.4 to 9.2. We will continue to monitor. 6. Fibromyalgia. Aware. 7. Anxiety. We will continue this patient on her home medications. 8. Systemic lupus erythematosus. I will continue with home medications, as well. cc: Heriberto Quinteros MD
[2016-06-22] MEDS: DUONEB (A & A) INH PRN (17:29)
--- NOTE | 2016-06-22 19:50 | Diag Imaging Result Document ---
PROCEDURE NAME: CHEST-PORTABLE - 06/22/2016 PORTABLE CHEST AT 1810 HOURS: FINDINGS: There is opacification in both lower lobes. The inspiration is less optimal than on 06/18/2016. Otherwise, there has been no significant change. IMPRESSION: Bilateral lower lobe atelectasis.
[2016-06-22] MEDS: PROTONIX IV SCH (21:05)
[2016-06-22] MEDS: ACCUPRIL PO SCH (21:05)
[2016-06-22] MEDS: PLAQUENIL PO SCH (21:06)
[2016-06-23] MEDS: HEPARIN SUBQ SCH ×3 (01:44→17:01)
[2016-06-23] MEDS: ZOSYN 3.375 GM/NS 3.375 GM/50 ML IVPB IV SCH ×3 (05:55→17:01)
[2016-06-23 06:05] LABS: MANUAL DIFF NEEDED? NO
[2016-06-23 06:08] LABS: BASO% 0.4 % (0.0-0.8); EOS# 0.44 X1000 (0.0-0.7); HEMATOCRIT 28.8 % (37.0-47.0); HEMOGLOBIN 9.4 g/dL (12.0-16.0); IMM GRAN# 0.02 X1000 (0.0-0.04); IMM GRAN% 0.3 % (0.0-0.5); LYMPH# 1.21 X1000 (1.2-3.4); LYMPH% 16.5 % (20.5-51.1); MCH 30.4 PG (27-31); MCHC 32.6 g/dL (33-37); MCV 93.2 FL (81-99); MONO# 0.73 X1000 (0.11-0.59); MPV 9.1 FL (7.4-10.4); NEUT% 66.8 % (42.2-75.2); PLT 216 X1000 (130-400); RBC 3.09 XMIL (4.2-5.4)
[2016-06-23 06:27] LABS: AGAP 5; BUN 5 mg/dL (8-22); CALCIUM 8.2 mg/dL (8.8-10.2); CHLORIDE 106 mmol/L (98-107); COSMO 278; SODIUM 141 mmol/L (136-145); TCO2 30 mmol/L (25-35)
[2016-06-23] MEDS: NORCO-10 PO PRN ×4 (06:27→19:26)
--- NOTE | 2016-06-23 07:32 | PROGRESS NOTE ---
DATE: 06/23/2016 SUBJECTIVE: The patient is doing well. Nausea is improved. Respiratory status is doing better. She is having bowel movements. She tolerated her full liquid diet. OBJECTIVE: Vital Signs: Patient is currently afebrile. Her vital signs have been stable. General: No acute distress. Alert and interactive. Cardiovascular: Regular rate and rhythm. Lungs: Grossly clear. Abdomen: Soft, nondistended. Appropriately tender. Incision is clean, dry, and intact. LABORATORY: Pending. ASSESSMENT AND PLAN: A 75-year-old female currently postoperative day #5 from a right hemicolectomy for cecal volvulus. 1. Anemia. At this time, patient has been on Plavix previously. If her hematocrit still holds, may start her on heparin soon. Otherwise just continue to monitor and keep her with the SCD's on. 2. Postoperative state. At this time, patient is doing well. We will advance her to a GI soft diet. I suspect the patient will need to have some kind of rehab in the postoperative period, but the patient will likely remain over the weekend. My partner will follow her through the weekend. cc: Kemal Barajas MD
[2016-06-23] MEDS: TOPROL XL PO SCH (10:06)
[2016-06-23] MEDS: ABILIFY PO SCH (10:06)
[2016-06-23] MEDS: PERIDEX MT SCH ×2 (10:07→21:44)
[2016-06-23] MEDS: ZOLOFT PO SCH (10:07)
[2016-06-23] MEDS: KLONOPIN PO PRN ×3 (10:08→21:44)
--- NOTE | 2016-06-23 16:57 | PROGRESS NOTE ---
DATE: 06/23/2016 SUBJECTIVE: This patient is looking better. She is not complaining of nausea or vomiting at this moment. She has been tolerating p.o. As per the patient, she is passing gas and having bowel movement as well. Family members at the bedside. Her blood pressure has been a little bit elevated. I will increase the dose of quinapril to 40. OBJECTIVE: Vital Signs: Temperature 99.4 degrees, pulse 88, respiratory rate 16, blood pressure 170/88. O2 saturation 98 on room air. HEENT: Head normocephalic. No trauma. PERRLA. Neck: Supple. No JVD. No masses. Central trachea. Chest: Clear to auscultation. No wheezing. No rales. Abdomen: Soft, mild distended, mild tenderness to palpation at the level of the right abdominal area. The wound looks clean. Extremities: Trace edema. No clubbing. No cyanosis. Neurological: The patient is alert and oriented x3. No focal neurological deficits. LABORATORY: WBC 7.3, hemoglobin 9.4, hematocrit 28.8, platelets 216,000. Sodium 141, potassium 4, chloride 106, bicarbonate 30. BUN 5, creatinine 0.5, calcium 8.2. ASSESSMENT AND PLAN: 1. Cecal volvulus status post right hemicolectomy. This patient is getting better. She is tolerating p.o. She has been passing gas and having bowel movement. She is not complaining of any major pain at this moment. 2. Hypertension. The blood pressure is a little bit elevated. I increased the dose of quinapril and I will add a low dose of hydralazine as well. 3. Bipolar disorder. Aware. Continue with the same management. 4. Anemia. This patient is status post 1 PRBC yesterday. Her hemoglobin was 9.2, today is 9.4. Continue with the same management. 5. Fibromyalgia. Aware. 6. Anxiety. We will continue with her home medication. 7. Systemic lupus erythematosus. Continue with home medications as well. 8. DVT prophylaxis. This patient is on SCDs. Her H and H are stable, continue with heparin cc: Heriberto Quinteros MD [facility]ITALChaim
[2016-06-23] MEDS: APRESOLINE PO SCH (17:02)
[2016-06-23] MEDS: DUONEB (A & A) INH PRN (18:18)
[2016-06-23] MEDS: ACCUPRIL PO SCH (21:43)
[2016-06-23] MEDS: PLAQUENIL PO SCH (21:44)
[2016-06-23] MEDS: PROTONIX IV SCH (21:45)
[2016-06-24] MEDS: NORCO-10 PO PRN ×4 (00:17→17:57)
[2016-06-24] MEDS: ZOSYN 3.375 GM/NS 3.375 GM/50 ML IVPB IV SCH ×4 (00:18→17:56)
[2016-06-24] MEDS: HEPARIN SUBQ SCH ×3 (02:14→17:56)
[2016-06-24 06:50] LABS: HEMATOCRIT 28.3 % (37.0-47.0)
[2016-06-24] MEDS: TOPROL XL PO SCH (10:00)
[2016-06-24] MEDS: KLONOPIN PO PRN ×2 (10:00→17:56)
[2016-06-24] MEDS: ABILIFY PO SCH (10:00)
[2016-06-24] MEDS: ZOLOFT PO SCH (10:00)
[2016-06-24] MEDS: APRESOLINE PO SCH ×3 (10:00→17:55)
--- NOTE | 2016-06-24 10:24 | PROGRESS NOTE ---
DATE: 06/24/2016 SUBJECTIVE: She is passing gas, is tolerating a diet. Pain is well controlled. OBJECTIVE: No fevers. Heart rate is 71, blood pressure 150/63, oxygen saturation 95% on 2 L nasal cannula. Abdomen is soft, appropriately tender. Incision is clean, dry, and intact. LABORATORIES: On review of the labs, hematocrit is stable at 28. It was 28 yesterday. ASSESSMENT AND PLAN: A 75-year-old female status post right colectomy for volvulus. She is tolerating a diet with bowel function. We will continue to monitor her today as she has just had return of bowel function and advancement of diet. She is on prophylaxis for ulcer and DVT. Continue to monitor today. Plan further disposition pending toleration of her diet. cc: Jessenia Leong MD
[2016-06-24] MEDS: PERIDEX MT SCH ×2 (11:05→21:05)
--- NOTE | 2016-06-24 15:09 | PROGRESS NOTE ---
DATE: 06/24/2016 SUBJECTIVE: This patient looks better today. She is not complaining of nausea or vomiting. She is tolerating p.o. and having bowel movements. Surgery Department is on board. OBJECTIVE: Vital Signs: Temperature 98.8 degrees, pulse 86, respiratory rate 20, blood pressure 158/65, oxygen saturation 98 on room air. HEENT: Head normocephalic. No trauma. PERRLA. Neck: Supple. No JVD. No masses. Central trachea. Chest: Clear to auscultation. No wheezing. No rales. Cardiovascular: RRR. No murmurs. Abdomen: Soft. Mild tenderness to palpation at the level of the right abdominal area. The wound looks clean. Extremities: Trace edema. No clubbing. No cyanosis. Neurological: The patient is alert and oriented x3. No focal neurological deficits. LABORATORY: Hemoglobin 9, hematocrit 28.3. ASSESSMENT AND PLAN: 1. Cecal volvulus, status post right hemicolectomy. This patient is getting better. She is tolerating p.o. and having bowel movements. 2. Hypertension. The blood pressure has been stable. Continue with the same dose. Continue with the same management. 3. Bipolar disorder. Aware. 4. Anemia, status post PRBC. The hemoglobin has been stable. Continue with the same management. 5. Fibromyalgia. Aware. 6. Anxiety. Continue with home medication. 7. Systemic lupus erythematosus. Continue with home medication. 8. DVT prophylaxis. Patient is on SCDs. Her hemoglobin and hematocrit are stable, continue with heparin. cc: Heriberto Quinteros MD
[2016-06-24] MEDS: DUONEB (A & A) INH PRN (18:18)
[2016-06-24] MEDS: PLAQUENIL PO SCH (21:05)
[2016-06-24] MEDS: ACCUPRIL PO SCH (21:05)
[2016-06-24] MEDS: PROTONIX IV SCH (21:05)
[2016-06-24] MEDS: SODIUM CHLORIDE 0.9% INJ SCH (21:05)
[2016-06-25] MEDS: ZOSYN 3.375 GM/NS 3.375 GM/50 ML IVPB IV SCH ×5 (00:38→23:34)
[2016-06-25] MEDS: HEPARIN SUBQ SCH ×4 (00:39→23:33)
[2016-06-25] MEDS: NORCO-10 PO PRN ×5 (04:10→23:34)
[2016-06-25] MEDS: KLONOPIN PO PRN ×4 (04:10→20:40)
[2016-06-25] MEDS: DUONEB (A & A) INH PRN (04:16)
[2016-06-25 06:22] LABS: HEMATOCRIT 28.7 % (37.0-47.0); HEMOGLOBIN 9.2 g/dL (12.0-16.0)
[2016-06-25] MEDS ORDERED: NORVASC PO SCH (09:00)
[2016-06-25] MEDS: ZOLOFT PO SCH (09:44)
[2016-06-25] MEDS: TOPROL XL PO SCH (09:45)
[2016-06-25] MEDS: ABILIFY PO SCH (09:45)
[2016-06-25] MEDS: APRESOLINE PO SCH ×3 (09:45→18:21)
[2016-06-25] MEDS: PERIDEX MT SCH ×2 (09:47→20:39)
--- NOTE | 2016-06-25 14:47 | PROGRESS NOTE ---
DATE: 06/25/2106 SUBJECTIVE: She feels well. She is tolerating a diet. Pain is controlled. Voiding and having bowel function. She is quite debilitated and has a hard time ambulating around the room. Has not yet ambulated in the hallways and she is quite debilitated. OBJECTIVE: Vital signs: No fevers. Temp is 98.4 degrees, pulse 81, blood pressure 155/72, oxygen saturation 95% on room air. General: She is alert, no acute distress. Abdomen: Soft. Appropriately tender. Integumentary: Warm and dry. Incision is clean, dry, and intact. LABORATORY: Hematocrit has been stable at 28. ASSESSMENT AND PLAN: This is a 75-year-old female status post right colectomy for cecal volvulus. She is doing overall okay. Deconditioned and physical therapy is her main issue at this point. Will monitor this today. I think she is nearing ready for discharge but I doubt is going to be ready today. cc: Jessenia Leong MD
--- NOTE | 2016-06-25 17:37 | PROGRESS NOTE ---
DATE: 06/25/2016 SUBJECTIVE: This patient is stable. She is not complaining of nausea or vomiting today. She is tolerating p.o. and having bowel movement. Surgery Department is on board, as well as Physical Therapy. OBJECTIVE: Vital Signs: Temperature 98.4 degrees, pulse 81, respiratory rate 18, blood pressure 155/72, O2 saturation 95% on room air. HEENT: Head normocephalic. No trauma. Pupils equal, round, and reactive to light and accommodation. Neck: Supple. No jugular venous distention. No masses. Central trachea. Chest: Clear to auscultation. No wheezing. No rales. Abdomen: Soft. Mild tenderness to palpation at the level of the right and left abdominal area. The wound looks clean. Extremities: Trace edema. No clubbing. No cyanosis. Neurological Examination: The patient is alert and oriented x3. No focal neurological deficits. LABORATORY: Hemoglobin 9.2, hematocrit 28.7. ASSESSMENT AND PLAN: 1. Cecal volvulus, status post right hemicolectomy. This patient is getting better. She is tolerating p.o. and having bowel movements and she is ambulating with assistance with physical therapy. 2. Hypertension. The blood pressure has been around 150s. I will add amlodipine 5 mg daily and will monitor the blood pressure. 3. Bipolar disorder. Aware. 4. Anemia, status post packed red blood cells. One packed red blood cell. The hemoglobin has been stable. Continue with the same management. 5. Fibromyalgia. Aware. 6. Anxiety. Continue with home medication. 7. Systemic lupus erythematosus. Continue with home medication. 8. Deep venous thrombosis prophylaxis. Continue with heparin. Hemoglobin and hematocrit has been stable. cc: Heriberto Quinteros MD
[2016-06-25] MEDS: SODIUM CHLORIDE 0.9% INJ SCH (20:39)
[2016-06-25] MEDS: ACCUPRIL PO SCH (20:39)
[2016-06-25] MEDS: PROTONIX IV SCH (20:39)
[2016-06-25] MEDS: PLAQUENIL PO SCH (23:35)
[2016-06-26] MEDS: DUONEB (A & A) INH PRN (02:57)
[2016-06-26] MEDS: NORCO-10 PO PRN ×3 (03:19→11:28)
[2016-06-26] MEDS: HEPARIN SUBQ SCH ×2 (03:20→10:05)
[2016-06-26] MEDS: KLONOPIN PO PRN ×2 (03:24→10:06)
[2016-06-26] MEDS: ZOSYN 3.375 GM/NS 3.375 GM/50 ML IVPB IV SCH (05:47)
[2016-06-26 06:13] LABS: MANUAL DIFF NEEDED? NO
[2016-06-26 06:23] LABS: BASO% 0.2 % (0.0-0.8); EOS# 0.42 X1000 (0.0-0.7); HEMATOCRIT 28.3 % (37.0-47.0); IMM GRAN# 0.08 X1000 (0.0-0.04); LYMPH# 1.95 X1000 (1.2-3.4); LYMPH% 23.2 % (20.5-51.1); MCHC 31.8 g/dL (33-37); MCV 94.3 FL (81-99); MONO# 0.81 X1000 (0.11-0.59); MONO% 9.6 % (1.7-9.3); MPV 9.2 FL (7.4-10.4); PLT 282 X1000 (130-400)
--- NOTE | 2016-06-26 06:26 | PROGRESS NOTE ---
DATE: 06/26/2016 SUBJECTIVE: Patient doing well. Tolerating her current diet and GI soft. She has been restarted on her heparin. She is doing well. She is having bowel movements. OBJECTIVE: Vital Signs: Patient is currently afebrile. Her vital signs have been stable. General: No acute distress. Cardiovascular: Regular rate and rhythm. Lungs: Grossly clear. Abdomen: Soft, nondistended. Appropriately tender. Incision is clean, dry, intact. LABORATORY: Pending. ASSESSMENT AND PLAN: A 75-year-old female, currently postoperative day 8 from right hemicolectomy for cecal volvulus. 1. Anemia at this time seems to be improved. Her hematocrit is holding. She is on heparin and we will continue to monitor. 2. Postoperative state at this time, patient doing well. She is significantly deconditioned. I think she would benefit from a rehab placement postoperatively. Discussed with the family we will have social workers to continue to follow her for rehab options. cc: Kemal Barajas MD
[2016-06-26 06:33] LABS: AGAP 8; BUN 6 mg/dL (8-22); CHLORIDE 106 mmol/L (98-107); COSMO 283; POTASSIUM 3.3 mmol/L (3.5-5.1); SODIUM 143 mmol/L (136-145); TCO2 29 mmol/L (25-35)
[2016-06-26] MEDS ORDERED: KLOR-CON PO ONE (07:52)
[2016-06-26 08:37] VITALS: BP 150/71
[2016-06-26] MEDS ORDERED: NORVASC PO SCH (09:00)
[2016-06-26] MEDS: ZOLOFT PO SCH (10:06)
[2016-06-26] MEDS: ABILIFY PO SCH (10:06)
[2016-06-26] MEDS: APRESOLINE PO SCH (10:07)
[2016-06-26] MEDS: TOPROL XL PO SCH (10:07)
[2016-06-26] MEDS: PERIDEX MT SCH (10:07)
[2016-06-26] MEDS ORDERED: VENTOLIN HFA INH PRN (10:32)
--- NOTE | 2016-06-27 05:55 | DISCHARGE SUMMARY ---
ADMISSION DATE: 06/18/2016 DISCHARGE DATE: 06/26/2016 CONSULTATIONS: Dr. Kemal Barajas with general surgery. PERTINENT PROCEDURES: Exploratory laparotomy with a right hemicolectomy at the ileocolonic anastomosis. DISCHARGE DIAGNOSES: 1. Cecal volvulus, status post right hemicolectomy. Patient is tolerating orals , having bowel movements, ambulating with physical therapy. Patient will be discharged home with home health with physical therapy. 2. Hypertension. Continue home medications. Amlodipine has been added. 3. Bipolar disorder. Aware. 4. Anemia, status post packed red blood cells. Hemoglobin and hematocrit have remained stable. 5. Fibromyalgia. Aware. 6. Anxiety, controlled. Continue home medications. 7. Systemic lupus erythematosus. Continue with home medicines. HOSPITAL COURSE: Ms. Lemus is a 75-year-old, female who has a past medical history of lupus, hypertension, bipolar, depression, diverticulosis, GERD, fibromyalgia, TIA 20 years ago. Patient came to the ED after she started having some abdominal pain mixed with constipation and diarrhea spells. She vomited about 10 times prior to her admission. Had associated chills but no other symptoms. Her workup with abdominal CT reveals cecal volvulus. Dr. Barajas was consulted with general surgery. On the same day of admission, the patient did undergo an exploratory laparotomy with a right hemicolectomy by Dr. Barajas. Continued on IV antibiotics as well as IV fluids. After surgery, the patient did have to receive some transfusions with PRBCs. She had been on Plavix previously. There were no active sources of bleeding intraoperatively. They suspected that her abdomen had raw surfaces that were bleeding slowly secondary to the Plavix. Her Plavix was held as well as any heparin. She remained hemodynamically stable. She did have a few days complaint of nausea and vomiting x2. She was passing gas. She was having small bowel movements. Her bowel sounds were quiet. Patient, during her admission, did have a CAT call on her. There was concern about oversedation. She was given Narcan and improved. Apparently, she had received some Compazine but she did recover. Again, patient was passing gas. She has had multiple bowel movements but was still reporting nausea. She worked with physical therapy. We did speak to the patient several times along with social workers about trying to get the patient into rehab secondary to her generalized weakness. However, she has a very supportive family and they would rather take her home with home health and physical therapy. The patient again has been tolerating p.o. She was having bowel movements. She was not complaining of any more nausea or vomiting. Her hemoglobin and hematocrit have remained stable as well as hemodynamically stable. Patient is being discharged home today with home health and physical therapy. Vital signs at time of discharge, temperature is 98.1 degrees, heart rate 83, respirations 18, blood pressure 150/71, O2 is 98% on room air. DISCHARGE DIET: GI soft with Ensure. DISCHARGE MEDICATION: As per Dr. Lemus: 1. Tylenol 650 mg p.o. q.6 hours p.r.n. 2. inhaler 2 puffs inhaled q.6 hours. 3. Abilify 10 mg p.o. daily. 4. Klonopin 2 mg p.o. t.i.d. p.r.n. 5. Plavix 75 mg p.o. daily. 6. Apresoline 25 mg p.o. t.i.d. 7. [place] 10/325 one each p.o. q.4 hours p.r.n. 8. Plaquenil 200 mg p.o. daily. 9. Toprol-XL 25 mg p.o. daily. 10. Prilosec 20 mg p.o. daily. 11. Primidone 100 mg p.o. at bedtime. 12. Seroquel 100 mg p.o. at bedtime. 13. Accupril 20 mg p.o. daily. 14. Zoloft 100 mg p.o. daily. FOLLOWUP: The patient is being discharged home with home health and physical therapy. She will follow up with Dr. Baraajs in 1 week as well as follow up with her primary care physician, Dr. Nicolás Taylor, in 7-10 days. Patient can return to the ED for any worsening of symptoms. Discharge time, 30 minutes. Dictated by AISHWARYA Pak for Heriberto Quinteros MD cc: Heriberto Quinteros MD [facility]
== END 2016-06-26 12:05 | disposition home health service (06) ==
LOC: ED 07:08 → 4N 18:47 → SUATTDRO 18:47
PROVIDERS: ATTEND Internal Medicine